=== PATIENT | male | born 1970 | race Caucasian/White ===

== ENCOUNTER → 2019-06-15 09:46 | Outpatient (CLI) | payer OTHER, SELFPAY ==
[2019-06-15 13:03] LABS: T4 Free Direct 0.94 ng/dL (0.76-1.46)
== END ==
PROVIDERS: Family Provider Family Medicine; PCP Family Medicine; Referring Provider Dermatology Pediatric Dermatology; Visit Provider Dermatology Pediatric Dermatology
DX: E03.8 Other specified hypothyroidism (principal); L63.8 Other alopecia areata
CPT/HCPCS: 36415; 84439; 84480; 86038; 86225